=== PATIENT | male | born 1960 | race American Indian/Alaskan Native ===

== ENCOUNTER 2016-12-27 19:01 | Observation (INO) | payer SELFPAY ==
--- NOTE | 2016-12-27 19:35 | C.PDOC ---
History Of Present Illness <Neida Crabtree - Last Filed: 12/27/16 23:50> <Shyanne Ace - Last Filed: 12/28/16 05:47> 56 year old male who presents to the ER with a complaint of left sided back pain for the past 2 weeks after falling down the stairs. Patient states the pain is localized and worse with movement; he reports limited relief with NSAIDS. Patient admits to ETOH use [employer]; denies SOB or other injury. Patient has a Hx of prior ER visits for ETOH intoxication. CO PERSIST L BACK PAIN X 2 WEEKS S/P FALL. PS FELL DOWN STAIRS. LIMITED RELIEF W NSAIDS. WORSE W MOVEMENT, LOCALIZED. DENIES SOB, OTHER INJURY. +ETOH [employer]ATCH [employer]. PRIOR ER VISITS FOR ETOH INTOX EXAM NAD NONTOXIC BACK +CONTUSION L MID BACK W MIN LOCAL TEND; NO CREPITUS. LUNGS NEG SKIN INTACT PSY CALM COOPERATIVE (Neida Crabtree) - HPI History Per: Patient History/Exam Limitations: no limitations Onset/Duration Of Symptoms: Days Injury Occurred (Timing): Days Ago: (2 weeks ago) Location Of Injury: Left: Back, Posterior: Back Recent travel outside of the [facility]: No - Fall Fall:Prior To Injury: Tripped (Fell down stairs) <Neida Crabtree - Last Filed: 12/27/16 23:50> <Shyanne Ace - Last Filed: 12/28/16 05:47> - HPI Time Seen by Provider: 12/27/16 19:23 Past Medical History Reviewed: Historical Data, Nursing Documentation, Vital Signs - Medical History PMH: No Chronic Diseases Surgical History: No Surg Hx Family History: States: Unknown Family Hx - Social History Hx Tobacco Use: Yes Hx Alcohol Use: Yes Hx Substance Use: No - Immunization History Hx Tetanus Toxoid Vaccination: No Hx Influenza Vaccination: No Hx Pneumococcal Vaccination: No <Neida Crabtree - Last Filed: 12/27/16 23:50> Review Of Systems Except As Marked, All Systems Reviewed And Found Negative. Cardiovascular: Negative for: Chest Pain Respiratory: Negative for: Shortness of Breath Gastrointestinal: Negative for: Abdominal Pain Musculoskeletal: Positive for: Back Pain. Negative for: Neck Pain Neurological: Negative for: Weakness, Numbness <Neida Crabtree - Last Filed: 12/27/16 23:50> Physical Exam - Physical Exam Appears: Non-toxic, No Acute Distress, Other (Calm, Cooperative, Inebriated, ETOH on breath) Skin: Normal Color, Warm, Dry Head: Atraumatic, Normacephalic Oral Mucosa: Moist Chest: Symmetrical, No Tenderness Cardiovascular: Rhythm Regular, No Murmur Respiratory: Normal Breath Sounds, No Rales, No Rhonchi, No Wheezing Gastrointestinal/Abdominal: Soft, No Tenderness Back: Other (+ contusion to left mid back with minimal tenderness, no crepitus) Neurological/Psych: Oriented x3, Normal Speech, Normal Cognition <Neida Crabtree - Last Filed: 12/27/16 23:50> ED Course And Treatment O2 Sat by Pulse Oximetry: 98 (Room air) Pulse Ox Interpretation: Normal - Other Rad Left Rib x-ray X-Ray: Interpreted by Me, Viewed By Me Interpretation: No acute fractures, possible old fractures on ribs 5 and 6. <Neida Crabtree - Last Filed: 12/27/16 23:50> Medical Decision Making <Neida Crabtree - Last Filed: 12/27/16 23:50> <Shyanne Ace - Last Filed: 12/28/16 05:47> Medical Decision Making: Plan: * Left rib x-ray * Toradol * Lidoderm patch (Neida Crabtree) ED OBSERVATION Date of observation admission: 12/27/16 Time of observation admission: 20:00 <Neida Crabtree - Last Filed: 12/27/16 23:50> <Shyanne Ace - Last Filed: 12/28/16 05:47> - Observation admission statement Patient is being placed in observation because:: back pain, intox (Neida Crabtree) - Goals of Observation Goals of observation are:: sobriety, sx improve (Neida Crabtree) - Progress Note Progress Note: 12/27/16 20:53 persist intox. will cont obs 12/27/16 23:50 EXAM UNCH PRIOR. S/O DR MELISSA NEAL SOBRIETY, DISPO (Neida Crabtree) Disposition <Neida Crabtree - Last Filed: 12/27/16 23:50> Counseled Patient/Family Regarding: Studies Performed, Diagnosis, Need For Followup - Disposition Disposition Time: 05:45 - POA Present On Arrival: None <Shyanne Ace - Last Filed: 12/28/16 05:47> - Disposition Disposition: HOME/ ROUTINE Condition: STABLE - Clinical Impression Clinical Impression: Alcohol intoxication, Back pain Critical Care Time - Scribe Statement The provider has reviewed the documentation as recorded by the Scribe <Neida Crabtree - Last Filed: 12/27/16 23:50> <Shyanne Ace - Last Filed: 12/28/16 05:47> - Scribe Statement Jon Gonsalez All medical record entries made by the Scribe were at my direction and personally dictated by me. I have reviewed the chart and agree that the record accurately reflects my personal performance of the history, physical exam, medical decision making, and the department course for this patient. I have also personally directed, reviewed, and agree with the discharge instructions and disposition. (Neida Crabtree) Addendum <Neida Crabtree - Last Filed: 12/27/16 23:50> <Shyanne Ace - Last Filed: 12/28/16 05:47> Addendum: 12/28/16 05:46 Patient currently AAOx3, ambulating normally in ED. Patient clinically sober at this time, will discharge. (Shyanne Ace)
[2016-12-27] MEDS ORDERED: Lidocaine 5% Patch TD STA (19:36)
--- NOTE | 2016-12-27 20:05 | RAD ---
PROCEDURE: Radiographs of the Chest and Left Ribs. HISTORY: TRAUMA COMPARISON: Chest x-ray performed 02/20/14 TECHNIQUE: Frontal radiograph of the chest and multiple oblique radiographs of the left ribs were obtained. FINDINGS: LEFT RIBS: Left 5th and 6th rib fracture deformities, age indeterminate. Lateral 4th and 5th rib fx deformities also age indeterminate. LUNGS: No focal consolidation. Please note that chest x-ray has limited sensitivity for the detection of pulmonary masses. PLEURA: No significant pleural effusion. No definite pneumothorax. CARDIOVASCULAR: Heart size appears within normal limits. Median sternotomy wires. Atherosclerotic calcifications of the aortic knob. OTHER FINDINGS: Radiopaque densities upper lobe scapula. IMPRESSION: Left 5th and 6th posterior lateral rib fracture deformities, age indeterminate. Lateral 4th and 5th rib fx deformities also age indeterminate.
[2016-12-27] MEDS ORDERED: Lidocaine 5% Patch TD ONE (20:09)
[2016-12-28 05:13] VITALS: BP 120/84; PULSE 98; RESP 18; TEMP 98.5; O2SAT 100
== END 2016-12-28 05:47 | disposition home or self-care (01) ==
LOC: SUPCPDRO 19:01 → C.ER 19:01 → C.9OBSV 20:00
PROVIDERS: ADMIT Emergency Medicine; ATTEND Emergency Medicine
DX: S30.0XXA Contusion of lower back and pelvis, initial encounter (principal); F10.129 Alcohol abuse with intoxication, unspecified; M54.9 Dorsalgia, unspecified; W10.9XXA Fall (on) (from) unspecified stairs and steps, initial encounter; F17.210 Nicotine dependence, cigarettes, uncomplicated
CPT/HCPCS: 71101; 99284; G0378

== ENCOUNTER 2017-09-12 19:51 | Emergency (ER) | payer SELFPAY ==
[2017-09-12 20:12] VITALS: BMI 21.2
--- NOTE | 2017-09-12 20:12 | C.PDOC ---
History Of Present Illness 57 year old male is brought to the ED for evaluation of chronic pains. Patient reports the pain is related to his Rheumatoid Arthritis. Patient has been presenting to the ED for evaluation of alcohol intoxication since 2014. Patient states today's pain complaint is similar to baseline. He denies fever, chills, and has no other complaints at this time. Time Seen by Provider: 09/12/17 20:10 History Per: Patient History/Exam Limitations: no limitations Onset/Duration Of Symptoms: Days Current Symptoms Are (Timing): Still Present Suicide/Self Injury Attempted (Context): None Modifying Factor(s): Alcohol Associated Symptoms: denies: Suicidal Thoughts, Suicidal Plan Involuntary Hold By: None Recent travel outside of the [place]: No Additional History Per: Patient Past Medical History Reviewed: Historical Data, Nursing Documentation, Vital Signs Vital Signs: Last Vital Signs Temp 97.6 F 09/12/17 20:12 Pulse 91 H 09/12/17 20:12 Resp 19 09/12/17 20:12 BP 112/76 09/12/17 20:12 Pulse Ox 96 09/12/17 23:02 - Medical History PMH: Rheumatoid Arthritis Surgical History: CABG Family History: States: Unknown Family Hx - Social History Hx Tobacco Use: Yes Hx Alcohol Use: Yes Hx Substance Use: No - Immunization History Hx Tetanus Toxoid Vaccination: No Hx Influenza Vaccination: No Hx Pneumococcal Vaccination: No Review Of Systems Constitutional: Negative for: Fever, Chills Musculoskeletal: Positive for: Other (chronic pains ) Physical Exam - Physical Exam Appears: Non-toxic, No Acute Distress, Other (thin, black male ) Skin: Normal Color, Warm, Dry Head: Atraumatic, Normacephalic Eye(s): bilateral: Normal Inspection Oral Mucosa: Moist, Other (alcohol on breath ) Neck: Supple Chest: Symmetrical, No Deformity, No Tenderness Cardiovascular: Rhythm Regular, No Murmur Respiratory: Normal Breath Sounds, No Rales, No Rhonchi, No Wheezing Gastrointestinal/Abdominal: Soft, No Tenderness Extremity: Normal ROM, Capillary Refill (less than 2 seconds ) Neurological/Psych: Other (awake, alert and arousable to touch and verbal stimuli ) Gait: Steady ED Course And Treatment O2 Sat by Pulse Oximetry: 96 (on RA) Pulse Ox Interpretation: Normal Medical Decision Making Medical Decision Making: BIBA for chronic RA pain, no RA joints noted intoxicated, normal gait, NAD drug seeking/malingering? Disposition Doctor Will See Patient In The: Office Counseled Patient/Family Regarding: Studies Performed, Diagnosis - Disposition Referrals: Alcoholics Anonymous [Outside] [facility] [Outside] [facility] [Outside] [facility] [Outside] [facility] [Outside] Disposition: HOME/ ROUTINE Disposition Time: 20:12 Condition: GOOD Additional Instructions: follow-up in our outpatient [facility] as needed Seek AA Instructions: Alcohol Abuse and Alcoholism (DC) Forms: [employer] (Indonesian) - Clinical Impression Clinical Impression: Alcohol intoxication - Scribe Statement The provider has reviewed the documentation as recorded by the Scribe (Janeth Danielson) Provider Attestation: All medical record entries made by the Scribe were at my direction and personally dictated by me. I have reviewed the chart and agree that the record accurately reflects my personal performance of the history, physical exam, medical decision making, and the department course for this patient. I have also personally directed, reviewed, and agree with the discharge instructions and disposition.
[2017-09-12 20:17] VITALS: BP 112/76; PULSE 91; RESP 19; TEMP 97.6; O2SAT 96
== END 2017-09-12 20:45 | disposition home or self-care (01) ==
LOC: C.ER 19:51
DX: F10.129 Alcohol abuse with intoxication, unspecified (principal); Y90.9 Presence of alcohol in blood, level not specified